=== PATIENT | male | born 1965 | race Hispanic/Latino ===

== ENCOUNTER 2021-12-29 15:11 | Observation (INO) | payer MEDICARE ==
[2021-12-25 12:18] LABS: BASOPHILS # (AUTO) 0.1 (0.0-0.1); BASOPHILS % 1.1 % (0.0-1.0); EOSINOPHILS # (AUTO) 0.1 (0.0-0.4); EOSINOPHILS % 1.1 % (0.0-6.0); HEMATOCRIT 39.3 % (38.2-49.6); HEMOGLOBIN 12.3 g/dL (14.0-18.0); LYMPHOCYTES # (AUTO) 0.8 (1.0-3.2); LYMPHOCYTES % 12.7 % (18.0-39.1); MEAN CORPUSCULAR HEMOGLOBIN 31.1 pg (28-32); MEAN CORPUSCULAR HGB CONC 31.3 g/dL (31-35); MEAN CORPUSCULAR VOLUME 99.2 fL (81-99); MONOCYTES # (AUTO) 0.7 (0.2-0.8); MONOCYTES % 10.3 % (4.4-11.3); NEUTROPHILS # (AUTO) 4.9 (2.1-6.9); NEUTROPHILS % 74.6 % (38.7-80.0); PLATELET COUNT 127 x10e3/uL (140-360); RED BLOOD COUNT 3.96 x10e6/uL (4.3-5.7); RED CELL DISTRIBUTION WIDTH 15.6 % (11.7-14.4)
[2021-12-25 13:32] LABS: ALANINE AMINOTRANSFERASE 9 IU/L (0-55); ALBUMIN 3.3 g/dL (3.5-5.0); ALBUMIN/GLOBULIN RATIO 0.7 (0.8-2.0); ALKALINE PHOSPHATASE 97 IU/L (40-150); BLOOD UREA NITROGEN 24 mg/dL (7-26); BUN/CREATININE RATIO 5 (6-25); CALCIUM 9.9 mg/dL (8.4-10.2); CARBON DIOXIDE 31 mmol/L (22-29); CHLORIDE 91 mmol/L (98-107); CREATININE, SERUM 5.27 mg/dL (0.72-1.25); GLUCOSE 80 mg/dL (74-118); SODIUM 134 mmol/L (136-145)
[2021-12-29] VITALS (14 sets, daily range): BP systolic 94–141; BP diastolic 42–94
[~2021-12-29] VITALS: Ht 175.3 cm; Wt 126.6 kg
[2021-12-29] MEDS ORDERED: SERTRALINE HCL50 MG PO (15:17)
[2021-12-29] MEDS ORDERED: RENAGEL800 MG PO (15:17)
[2021-12-29] MEDS ORDERED: VITAMIN D3125 MCG PO (15:17)
[2021-12-29] MEDS ORDERED: ASPIRIN81 MG PO (15:17)
[2021-12-29] MEDS ORDERED: CARVEDILOL3.125 MG PO (15:17)
[2021-12-29] MEDS ORDERED: ATIVAN1 MG PO (15:17)
[2021-12-29] MEDS ORDERED: DIPHENHYDRAMINE HCL 25 MG CAP ONE (15:49)
[2021-12-29] MEDS ORDERED: ALPRAZOLAM 0.5 MG TAB ONE (15:49)
[2021-12-29] MEDS ORDERED: MIDAZOLAM HCL 2 MG/2 ML VIAL ONE ×2 (16:04→16:29)
[2021-12-29] MEDS ORDERED: VERAPAMIL HCL 2.5 MG/ML 2 ML VIAL ONE (16:04)
[2021-12-29] MEDS ORDERED: FENTANYL CITRATE/PF 100MCG/2 ML INJ ONE (16:04)
[2021-12-29] MEDS ORDERED: HEPARIN SOD (PORCINE) 1000 UNIT/ML 30ML ONE (16:04)
[2021-12-29] MEDS ORDERED: IOPAMIDOL 370 MG/ML 100 ML INFUS..BTL INJ ONE (16:05)
[2021-12-29] MEDS ORDERED: SODIUM CHLORIDE 0.9% 1000ML 1,000 ML ONE (16:05)
[2021-12-29] MEDS ORDERED: HEPARIN SOD/SOD CHLORIDE 2,000 ML ONE (16:05)
[2021-12-29] MEDS ORDERED: LIDOCAINE HCL 1% LOCAL INJ 20 ML VIAL ONE (16:05)
[2021-12-29] MEDS ORDERED: ACETAMINOPHEN 325 MG TAB PO PRN (16:45)
[2021-12-29] MEDS ORDERED: ONDANSETRON HCL INJ 2MG/ML 2ML 2 MG/ML VIAL IV PRN (16:45)
[2021-12-29] MEDS: VALSARTAN/SACUBITRIL 24MG/26MG 1 EA TAB PO SCH (17:00)
[2021-12-29] MEDS: ATORVASTATIN 40 MG TAB PO SCH (21:03)
[2021-12-29] MEDS: SEVELAMER CARBONATE 800 MG TAB PO SCH (21:03)
[2021-12-30] VITALS (9 sets, daily range): BP systolic 105–137; BP diastolic 55–82
[2021-12-30 05:14] LABS: BASOPHILS # (AUTO) 0.1 (0.0-0.1); BASOPHILS % 1.3 % (0.0-1.0); EOSINOPHILS # (AUTO) 0.1 (0.0-0.4); EOSINOPHILS % 1.3 % (0.0-6.0); HEMATOCRIT 35.5 % (38.2-49.6); HEMOGLOBIN 11.2 g/dL (14.0-18.0); LYMPHOCYTES # (AUTO) 0.7 (1.0-3.2); LYMPHOCYTES % 13.2 % (18.0-39.1); MEAN CORPUSCULAR HEMOGLOBIN 30.9 pg (28-32); MEAN CORPUSCULAR HGB CONC 31.5 g/dL (31-35); MEAN CORPUSCULAR VOLUME 98.1 fL (81-99); MONOCYTES # (AUTO) 0.6 (0.2-0.8); MONOCYTES % 11.5 % (4.4-11.3); NEUTROPHILS # (AUTO) 3.8 (2.1-6.9); NEUTROPHILS % 72.1 % (38.7-80.0); PLATELET COUNT 109 x10e3/uL (140-360); RED BLOOD COUNT 3.62 x10e6/uL (4.3-5.7); RED CELL DISTRIBUTION WIDTH 15.9 % (11.7-14.4)
[2021-12-30 05:40] LABS: ALBUMIN 3.1 g/dL (3.5-5.0); ALBUMIN/GLOBULIN RATIO 0.7 (0.8-2.0); ANION GAP 17.1 mmol/L (8-16); CALCIUM 8.6 mg/dL (8.4-10.2); CREATININE, SERUM 5.98 mg/dL (0.72-1.25); POTASSIUM 4.1 mmol/L (3.5-5.1)
[2021-12-30] MEDS: SEVELAMER CARBONATE 800 MG TAB PO SCH ×3 (08:00→16:23)
[2021-12-30] MEDS ORDERED: Cholecalciferol (Vitamin D3) 125 MCG PO SCH (09:00)
[2021-12-30] MEDS: CARVEDILOL 3.125 MG TAB PO SCH (09:00)
[2021-12-30] MEDS: SERTRALINE HCL 50 MG TAB PO SCH (09:32)
[2021-12-30] MEDS: CHOLECALCIFEROL 1,000 UNIT TAB PO SCH (09:32)
[2021-12-30] MEDS: ASPIRIN 81 MG CHEW TAB PO SCH (09:33)
[2021-12-30] MEDS: LORAZEPAM 0.5 MG TAB PO SCH (09:33)
[2021-12-30] MEDS: VALSARTAN/SACUBITRIL 24MG/26MG 1 EA TAB PO SCH ×2 (09:33→16:23)
[2021-12-30] MEDS ORDERED: SODIUM CHLORIDE 0.9% 1000ML 2,000 ML ONE (15:50)
[2021-12-30] MEDS: ATORVASTATIN 40 MG TAB PO SCH (21:40)
[2021-12-31 05:36] VITALS: BP 115/60
[2021-12-31 05:56] LABS: BASOPHILS # (AUTO) 0.1 (0.0-0.1); BASOPHILS % 0.9 % (0.0-1.0); EOSINOPHILS # (AUTO) 0.1 (0.0-0.4); EOSINOPHILS % 1.4 % (0.0-6.0); HEMATOCRIT 37.6 % (38.2-49.6); HEMOGLOBIN 11.8 g/dL (14.0-18.0); LYMPHOCYTES # (AUTO) 0.8 (1.0-3.2); LYMPHOCYTES % 14.2 % (18.0-39.1); MEAN CORPUSCULAR HEMOGLOBIN 30.6 pg (28-32); MEAN CORPUSCULAR HGB CONC 31.4 g/dL (31-35); MEAN CORPUSCULAR VOLUME 97.7 fL (81-99); MONOCYTES # (AUTO) 0.6 (0.2-0.8); MONOCYTES % 10.8 % (4.4-11.3); NEUTROPHILS # (AUTO) 4.2 (2.1-6.9); NEUTROPHILS % 72.4 % (38.7-80.0); PLATELET COUNT 126 x10e3/uL (140-360); RED BLOOD COUNT 3.85 x10e6/uL (4.3-5.7); RED CELL DISTRIBUTION WIDTH 15.9 % (11.7-14.4)
[2021-12-31 06:20] LABS: ALBUMIN 3.1 g/dL (3.5-5.0); ALBUMIN/GLOBULIN RATIO 0.7 (0.8-2.0); ANION GAP 17.7 mmol/L (8-16); CALCIUM 8.4 mg/dL (8.4-10.2); CREATININE, SERUM 5.73 mg/dL (0.72-1.25); POTASSIUM 3.7 mmol/L (3.5-5.1)
[2021-12-31 08:09] VITALS: BP 145/71
[2021-12-31 08:17] VITALS: BP 145/71
[2021-12-31] MEDS ORDERED: MIDAZOLAM HCL 2 MG/2 ML VIAL ONE (08:52)
[2021-12-31] MEDS ORDERED: GENTAMICIN SULFATE 40 MG/ML 2 ML VIAL ONE ×2 (08:52→09:33)
[2021-12-31] MEDS ORDERED: LIDOCAINE 1% W/EPINEPHRINE 20 ML VIAL ONE ×2 (08:52→09:44)
[2021-12-31] MEDS ORDERED: SODIUM CHLORIDE 0.9% 1000ML 2,000 ML ONE (08:53)
[2021-12-31] MEDS ORDERED: Vancomycin IV 1 GM VIAL ONE (08:53)
[2021-12-31] MEDS ORDERED: SODIUM CHLORIDE 0.9% 500ML 500 ML ONE ×2 (08:53→11:11)
[2021-12-31] MEDS ORDERED: FENTANYL CITRATE/PF 100MCG/2 ML INJ ONE (08:53)
[2021-12-31] MEDS ORDERED: LIDOCAINE HCL 1% LOCAL INJ 20 ML VIAL ONE (09:48)
[2021-12-31] MEDS ORDERED: DIPHENHYDRAMINE HCL INJ 50 MG/ML VIAL ONE (11:02)
[2021-12-31] MEDS ORDERED: ONDANSETRON HCL 4 MG ORAL DISINTEGRATING TAB PO PRN (11:30)
[2021-12-31 12:00] VITALS: BP 148/98
[2021-12-31] MEDS: SEVELAMER CARBONATE 800 MG TAB PO SCH ×3 (12:00→16:42)
[2021-12-31] MEDS: CHOLECALCIFEROL 1,000 UNIT TAB PO SCH (12:34)
[2021-12-31] MEDS: LORAZEPAM 0.5 MG TAB PO SCH (12:35)
[2021-12-31] MEDS: ASPIRIN 81 MG CHEW TAB PO SCH (12:35)
[2021-12-31] MEDS: VALSARTAN/SACUBITRIL 24MG/26MG 1 EA TAB PO SCH ×2 (12:35→16:42)
[2021-12-31] MEDS: CARVEDILOL 3.125 MG TAB PO SCH (12:36)
[2021-12-31] MEDS: SERTRALINE HCL 50 MG TAB PO SCH (12:36)
[2021-12-31] MEDS: Morphine 2mg Syringe 2 MG/ML SYR IV PRN ×2 (15:19→19:04)
[2021-12-31 16:36] VITALS: BP 108/65
[2021-12-31] MEDS: ATORVASTATIN 40 MG TAB PO SCH (21:31)
[2021-12-31 21:52] VITALS: BP 123/55
[2022-01-01 04:15] VITALS: BP 110/59
[2022-01-01 04:22] VITALS: BP 110/59
[2022-01-01 06:03] LABS: BASOPHILS # (AUTO) 0.1 (0.0-0.1); BASOPHILS % 1.1 % (0.0-1.0); EOSINOPHILS # (AUTO) 0.1 (0.0-0.4); EOSINOPHILS % 1.4 % (0.0-6.0); HEMATOCRIT 33.9 % (38.2-49.6); HEMOGLOBIN 11.2 g/dL (14.0-18.0); LYMPHOCYTES # (AUTO) 0.6 (1.0-3.2); MEAN CORPUSCULAR HEMOGLOBIN 31.2 pg (28-32); MEAN CORPUSCULAR VOLUME 94.4 fL (81-99); MONOCYTES # (AUTO) 0.8 (0.2-0.8); MONOCYTES % 11.3 % (4.4-11.3); NEUTROPHILS # (AUTO) 5.4 (2.1-6.9); NEUTROPHILS % 76.6 % (38.7-80.0); PLATELET COUNT 125 x10e3/uL (140-360); RED BLOOD COUNT 3.59 x10e6/uL (4.3-5.7); RED CELL DISTRIBUTION WIDTH 16.1 % (11.7-14.4)
[2022-01-01 06:33] VITALS: BP 116/73
[2022-01-01 06:33] LABS: ANION GAP 18.4 mmol/L (8-16); CALCIUM 8.3 mg/dL (8.4-10.2); CREATININE, SERUM 7.05 mg/dL (0.72-1.25); POTASSIUM 4.4 mmol/L (3.5-5.1)
[2022-01-01] MEDS: Morphine 2mg Syringe 2 MG/ML SYR IV PRN (06:38)
[2022-01-01] MEDS ORDERED: HYDROCODONE/APAP 7.5MG-325MG 1 EA TAB PO PRN (06:45)
[2022-01-01 08:00] VITALS: BP 107/54
[2022-01-01 08:30] VITALS: BP 110/50
[2022-01-01] MEDS: VALSARTAN/SACUBITRIL 24MG/26MG 1 EA TAB PO SCH (09:00)
[2022-01-01] MEDS: CARVEDILOL 3.125 MG TAB PO SCH (09:00)
[2022-01-01] MEDS: SERTRALINE HCL 50 MG TAB PO SCH (09:00)
[2022-01-01] MEDS ORDERED: SODIUM CHLORIDE 0.9% 1000ML 1,000 ML ONE (09:56)
[2022-01-01] MEDS ORDERED: MINOCYCLINE HCL50 MG PO (11:07)
[2022-01-01] MEDS ORDERED: TYLENOL #3 PO (11:08)
[2022-01-01 12:22] VITALS: BP 95/61
[2022-01-01] MEDS: SEVELAMER CARBONATE 800 MG TAB PO SCH ×2 (12:40→12:41)
[2022-01-01] MEDS: LORAZEPAM 0.5 MG TAB PO SCH (12:42)
[2022-01-01] MEDS: ASPIRIN 81 MG CHEW TAB PO SCH (12:43)
[2022-01-01] MEDS: CHOLECALCIFEROL 1,000 UNIT TAB PO SCH (12:43)
== END 2022-01-01 13:23 | disposition home or self-care (01) ==
LOC: CATH LAB 15:11 → INTOOBSV 19:23 → MED/SURG3 19:23 → MED/SURG2 12-31 11:36
PROVIDERS: ADMIT Internal Medicine; ATTEND Internal Medicine
DX: I13.2 Hypertensive heart and chronic kidney disease with heart failure and with stage 5 chronic kidney disease, or end stage renal disease (principal); I25.118 Atherosclerotic heart disease of native coronary artery with other forms of angina pectoris; I50.43 Acute on chronic combined systolic (congestive) and diastolic (congestive) heart failure; N18.6 End stage renal disease; E66.01 Morbid (severe) obesity due to excess calories; Z68.41 Body mass index [BMI] 40.0-44.9, adult; R94.39 Abnormal result of other cardiovascular function study; I44.7 Left bundle-branch block, unspecified; Z99.2 Dependence on renal dialysis; E55.9 Vitamin D deficiency, unspecified; D63.1 Anemia in chronic kidney disease; Z20.822 Contact with and (suspected) exposure to COVID-19; Z86.16 Personal history of COVID-19; Z88.5 Allergy status to narcotic agent; Z79.82 Long term (current) use of aspirin; Z82.49 Family history of ischemic heart disease and other diseases of the circulatory system; Z80.0 Family history of malignant neoplasm of digestive organs
CPT/HCPCS: 0223U; 33225; 33249; 36415 ×4; 71045; 75820; 76937; 80048; 80053 ×3; 85025 ×4; 90935; 93005; 93306; 93458; 99251; C1763; C1769 ×2; C1777; C1882; C1887; C1894; C1898; C1900; G0378 ×4; J0690; J1200; J1580; J1644; J2001 ×2; J2250 ×2; J2270; J3010 ×2; J3370; J7030 ×4; J7040; Q9967; 93454; 99152; 99153

== ENCOUNTER → 2022-02-12 | Day surgery (SDC) | payer MEDICARE ==
[2022-02-10 13:17] LABS: BASOPHILS # (AUTO) 0.1 (0.0-0.1); BASOPHILS % 1.5 % (0.0-1.0); EOSINOPHILS # (AUTO) 0.1 (0.0-0.4); EOSINOPHILS % 1.1 % (0.0-6.0); HEMATOCRIT 32.9 % (38.2-49.6); HEMOGLOBIN 10.1 g/dL (14.0-18.0); LYMPHOCYTES # (AUTO) 0.8 (1.0-3.2); MEAN CORPUSCULAR HGB CONC 30.7 g/dL (31-35); MEAN CORPUSCULAR VOLUME 100.9 fL (81-99); MONOCYTES # (AUTO) 0.7 (0.2-0.8); MONOCYTES % 11.7 % (4.4-11.3); NEUTROPHILS # (AUTO) 4.5 (2.1-6.9); NEUTROPHILS % 72.5 % (38.7-80.0); PLATELET COUNT 127 x10e3/uL (140-360); RED BLOOD COUNT 3.26 x10e6/uL (4.3-5.7); RED CELL DISTRIBUTION WIDTH 14.9 % (11.7-14.4)
[2022-02-10 13:28] LABS: INR 1.19; PROTHROMBIN TIME 16.1 seconds (11.9-14.5)
[2022-02-10 13:33] LABS: ANION GAP 16.1 mmol/L (8-16); CALCIUM 8.8 mg/dL (8.4-10.2); CREATININE, SERUM 6.56 mg/dL (0.72-1.25); POTASSIUM 4.1 mmol/L (3.5-5.1)
[~2022-02-12] VITALS: Ht 175.3 cm; Wt 119.7 kg
[2022-02-12] VITALS (7 sets, daily range): BP systolic 122–138; BP diastolic 41–67
[~2022-02-12] MED LIST: ASPIRIN81 MG PO; ATIVAN1 MG PO; CARVEDILOL3.125 MG PO; FENTANYL CITRATE/PF 100MCG/2 ML INJ ONE; GENTAMICIN SULFATE 40 MG/ML 2 ML VIAL ONE; LIDOCAINE 1% 10 ML MULTIDOSE VIAL IJ ONE; MIDAZOLAM HCL 2 MG/2 ML VIAL ONE; MINOCYCLINE HCL50 MG PO; RENAGEL800 MG PO; SERTRALINE HCL50 MG PO; SODIUM CHLORIDE 0.9% 1000ML 3,000 ML ONE; SODIUM CHLORIDE 0.9% 250ML 250 ML ONE; TYLENOL #3 PO; VITAMIN D3125 MCG PO; Vancomycin IV 1 GM VIAL ONE
== END | disposition home or self-care (01) ==
LOC: CATH LAB 07:05
PROVIDERS: ATTEND Internal Medicine
DX: T82.190A Other mechanical complication of cardiac electrode, initial encounter (principal); I42.0 Dilated cardiomyopathy; I44.7 Left bundle-branch block, unspecified; Z95.810 Presence of automatic (implantable) cardiac defibrillator; I13.2 Hypertensive heart and chronic kidney disease with heart failure and with stage 5 chronic kidney disease, or end stage renal disease; N18.6 End stage renal disease; I50.42 Chronic combined systolic (congestive) and diastolic (congestive) heart failure; Y83.8 Other surgical procedures as the cause of abnormal reaction of the patient, or of later complication, without mention of misadventure at the time of the procedure; Z01.812 Encounter for preprocedural laboratory examination; Z20.822 Contact with and (suspected) exposure to COVID-19; Z99.2 Dependence on renal dialysis; Z79.82 Long term (current) use of aspirin; Z79.899 Other long term (current) drug therapy
CPT/HCPCS: 0223U; 33273; 36415; 80048; 85025; 85610; C1769; J1580; J2250; J3010; J3370; J7030; J7050; 33215; 33222; 99152; 99153

== ENCOUNTER 2022-04-10 14:28 | Observation (INO) | payer MEDICARE ==
[~2022-04-10] VITALS: Ht 175.3 cm; Wt 119.7 kg
[~2022-04-10 14:28] MED LIST changes: -FENTANYL CITRATE/PF 100MCG/2 ML INJ ONE; -GENTAMICIN SULFATE 40 MG/ML 2 ML VIAL ONE; -LIDOCAINE 1% 10 ML MULTIDOSE VIAL IJ ONE; -MIDAZOLAM HCL 2 MG/2 ML VIAL ONE; -SODIUM CHLORIDE 0.9% 1000ML 3,000 ML ONE; -SODIUM CHLORIDE 0.9% 250ML 250 ML ONE; -Vancomycin IV 1 GM VIAL ONE
[2022-04-10 15:10] LABS: BASOPHILS # (AUTO) 0.1 (0.0-0.1); BASOPHILS % 1.2 % (0.0-1.0); EOSINOPHILS # (AUTO) 0.1 (0.0-0.4); EOSINOPHILS % 2.1 % (0.0-6.0); HEMOGLOBIN 10.9 g/dL (14.0-18.0); LYMPHOCYTES # (AUTO) 0.7 (1.0-3.2); LYMPHOCYTES % 14.4 % (18.0-39.1); MEAN CORPUSCULAR HGB CONC 30.3 g/dL (31-35); MEAN CORPUSCULAR VOLUME 102.3 fL (81-99); MONOCYTES # (AUTO) 0.6 (0.2-0.8); MONOCYTES % 11.5 % (4.4-11.3); NEUTROPHILS # (AUTO) 3.4 (2.1-6.9); NEUTROPHILS % 70.6 % (38.7-80.0); PLATELET COUNT 112 x10e3/uL (140-360); RED BLOOD COUNT 3.52 x10e6/uL (4.3-5.7); RED CELL DISTRIBUTION WIDTH 15.2 % (11.7-14.4)
[2022-04-10 15:30] LABS: ALANINE AMINOTRANSFERASE 10 IU/L (0-55); ALBUMIN 3.8 g/dL (3.5-5.0); ALBUMIN/GLOBULIN RATIO 0.9 (0.8-2.0); ALKALINE PHOSPHATASE 75 IU/L (40-150); ANION GAP 19.9 mmol/L (8-16); BLOOD UREA NITROGEN 47 mg/dL (7-26); BUN/CREATININE RATIO 5 (6-25); CALCIUM 8.7 mg/dL (8.4-10.2); CARBON DIOXIDE 22 mmol/L (22-29); CHLORIDE 96 mmol/L (98-107); CREATINE KINASE 50 IU/L (30-200); CREATININE, SERUM 9.44 mg/dL (0.72-1.25); GLUCOSE 95 mg/dL (74-118); POTASSIUM 4.9 mmol/L (3.5-5.1); SODIUM 133 mmol/L (136-145)
[2022-04-10 15:54] LABS: CREATINE KINASE MB < 1.00 ng/mL (0-4.3)
[2022-04-10] MEDS ORDERED: SODIUM CHLORIDE 0.9% 1000ML 2,000 ML ONE (19:10)
[2022-04-10 20:00] VITALS: BP 168/91
[2022-04-10 20:38] LABS: CREATINE KINASE MB 1.3 ng/mL (0-5.0)
[2022-04-11] VITALS (8 sets, daily range): BP systolic 123–167; BP diastolic 62–77
[2022-04-11 06:30] LABS: BASOPHILS # (AUTO) 0.1 (0.0-0.1); BASOPHILS % 1.8 % (0.0-1.0); EOSINOPHILS # (AUTO) 0.1 (0.0-0.4); EOSINOPHILS % 2.8 % (0.0-6.0); HEMATOCRIT 33.1 % (38.2-49.6); HEMOGLOBIN 10.6 g/dL (14.0-18.0); LYMPHOCYTES # (AUTO) 0.8 (1.0-3.2); LYMPHOCYTES % 18.6 % (18.0-39.1); MEAN CORPUSCULAR HEMOGLOBIN 31.2 pg (28-32); MEAN CORPUSCULAR VOLUME 97.4 fL (81-99); MONOCYTES # (AUTO) 0.6 (0.2-0.8); MONOCYTES % 13.5 % (4.4-11.3); NEUTROPHILS # (AUTO) 2.8 (2.1-6.9); NEUTROPHILS % 63.1 % (38.7-80.0); PLATELET COUNT 100 x10e3/uL (140-360); RED CELL DISTRIBUTION WIDTH 15.6 % (11.7-14.4)
[2022-04-11 07:08] LABS: ALBUMIN 3.5 g/dL (3.5-5.0); ALBUMIN/GLOBULIN RATIO 0.9 (0.8-2.0); ANION GAP 17.9 mmol/L (8-16); CALCIUM 8.4 mg/dL (8.4-10.2); CREATININE, SERUM 7.74 mg/dL (0.72-1.25); POTASSIUM 3.9 mmol/L (3.5-5.1)
[2022-04-11 08:23] LABS: CREATINE KINASE MB 1.2 ng/mL (0-5.0)
[2022-04-11] MEDS: ALBUTEROL/IPRATROPIUM 3 ML NEB NEB PRN ×2 (10:15→20:05)
[2022-04-11] MEDS: FLUTICASONE PROPIONATE NASAL SPRAY NS SCH ×2 (11:00→16:01)
[2022-04-11] MEDS ORDERED: GUAIFENESIN 200 MG/10 ML UDC PO PRN (11:00)
[2022-04-11] MEDS: SEVELAMER CARBONATE 800 MG TAB PO SCH ×2 (11:45→17:44)
[2022-04-11 15:19] LABS: CREATINE KINASE MB 1.1 ng/mL (0-5.0)
[2022-04-11] MEDS: CLONAZEPAM 0.5 MG TAB PO SCH (16:01)
[2022-04-12] VITALS: BP 133/73
[2022-04-12] MEDS: ALBUTEROL/IPRATROPIUM 3 ML NEB NEB PRN ×2 (00:30→06:30)
[2022-04-12 04:00] VITALS: BP 158/82
[2022-04-12 05:45] LABS: BASOPHILS # (AUTO) 0.1 (0.0-0.1); BASOPHILS % 1.1 % (0.0-1.0); EOSINOPHILS # (AUTO) 0.1 (0.0-0.4); EOSINOPHILS % 1.7 % (0.0-6.0); HEMOGLOBIN 10.7 g/dL (14.0-18.0); LYMPHOCYTES # (AUTO) 1.1 (1.0-3.2); LYMPHOCYTES % 21.5 % (18.0-39.1); MEAN CORPUSCULAR HEMOGLOBIN 30.7 pg (28-32); MEAN CORPUSCULAR HGB CONC 29.7 g/dL (31-35); MEAN CORPUSCULAR VOLUME 103.2 fL (81-99); MONOCYTES # (AUTO) 0.6 (0.2-0.8); MONOCYTES % 11.2 % (4.4-11.3); NEUTROPHILS # (AUTO) 3.4 (2.1-6.9); NEUTROPHILS % 64.1 % (38.7-80.0); PLATELET COUNT 124 x10e3/uL (140-360); RED BLOOD COUNT 3.49 x10e6/uL (4.3-5.7); RED CELL DISTRIBUTION WIDTH 15.2 % (11.7-14.4)
[2022-04-12 06:24] LABS: ALBUMIN 3.8 g/dL (3.5-5.0); ALBUMIN/GLOBULIN RATIO 0.9 (0.8-2.0); ANION GAP 20.2 mmol/L (8-16); CALCIUM 8.4 mg/dL (8.4-10.2); CREATININE, SERUM 9.21 mg/dL (0.72-1.25); MAGNESIUM 2.3 MG/DL (1.3-2.1); POTASSIUM 4.2 mmol/L (3.5-5.1)
[2022-04-12 07:36] VITALS: BP 158/82
[2022-04-12 07:42] VITALS: BP 147/48
[2022-04-12 07:54] VITALS: BP 147/48
[2022-04-12] MEDS: CLONAZEPAM 0.5 MG TAB PO SCH (08:31)
[2022-04-12] MEDS: SEVELAMER CARBONATE 800 MG TAB PO SCH ×2 (08:31→11:48)
[2022-04-12] MEDS ORDERED: SODIUM CHLORIDE 0.9% 250ML 250 ML ONE (08:46)
[2022-04-12] MEDS ORDERED: ASPIRIN 81 MG CHEW TAB PO SCH (09:00)
[2022-04-12] MEDS ORDERED: zpack PO (10:33)
[2022-04-12 11:15] VITALS: BP 141/47
[2022-04-12] MEDS: FLUTICASONE PROPIONATE NASAL SPRAY NS SCH (11:31)
== END 2022-04-12 13:40 | disposition home or self-care (01) ==
LOC: ER 14:42 → ERHOLD 17:15 → MED/SURG3 18:40
PROVIDERS: ADMIT Internal Medicine; ATTEND Internal Medicine
DX: I13.2 Hypertensive heart and chronic kidney disease with heart failure and with stage 5 chronic kidney disease, or end stage renal disease (principal); I50.23 Acute on chronic systolic (congestive) heart failure; N18.6 End stage renal disease; Z99.2 Dependence on renal dialysis; I25.10 Atherosclerotic heart disease of native coronary artery without angina pectoris; Z95.810 Presence of automatic (implantable) cardiac defibrillator; J20.5 Acute bronchitis due to respiratory syncytial virus; E66.09 Other obesity due to excess calories; Z68.39 Body mass index [BMI] 39.0-39.9, adult; I44.7 Left bundle-branch block, unspecified
CPT/HCPCS: 0223U; 36415 ×3; 71045 ×2; 80053 ×3; 82550 ×2; 82553 ×2; 83735; 83880 ×2; 84484 ×2; 85025 ×3; 86704; 86706; 87340; 87400; 87420; 93005; 94640 ×3; 94760; 94799 ×3; 99284; G0378 ×3; J0456; J7030; J7050